=== PATIENT | male | born 1995 | race Caucasian/White ===

== ENCOUNTER 2021-01-25 20:18 | Inpatient (IN) ==
[2021-01-25 21:21] LABS: Basophils # 0.1 K/mcL (0.0-0.2); Basophils % 0.6 %; Eosinophils # 0.2 K/mcL (0.0-0.6); Eosinophils % 2.5 %; Hematocrit 35.3 % (37.5-50.1); Hemoglobin 11.8 g/dL (12.9-16.9); Immature Granulocytes % 0.8 % (0-4); Lymphocytes # 1.5 K/mcL (0.6-4.6); Lymphocytes % 18.7 %; Mean Corpuscular HGB Conc 33.4 g/dL (31.6-35.5); Mean Corpuscular Volume 98.6 fL (83.0-100.0); Mean Platelet Volume 10.1 fL (9.4-12.4); Monocytes # 0.5 K/mcL (0.0-1.3); Monocytes % 6.9 %; Neutrophils # 5.5 K/mcL (1.6-8.9); Platelet Count 328 K/mcL (140-400); Red Blood Count 3.58 M/mcL (4.19-5.50); Red Cell Distribution Width 14.2 % (11.5-14.5); Segmented Neutrophils % 70.5 %; White Blood Count 7.9 K/mcL (4.3-11.1)
[2021-01-25 21:28] LABS: Bilirubin,Urine Large (Negative); Blood,Urine Negative (Negative); Clarity,Urine Clear (Clear); Color,Urine Amber (Yellow); Glucose,Urine (UA) Normal (Normal); Ketones,Urine Negative (Negative); Leukocyte Esterase,Urine Negative (Negative); Nitrite,Urine Negative (Negative); Protein,Urine 30 mg/dL (Neg-Trace); Urobilinogen,Urine Normal (Normal)
[2021-01-25 21:28] LABS: INR 1.2; Prothrombin Time 13.8 Seconds (9.4-12.1)
[2021-01-25 21:35] LABS: Platelet Estimate Normal (Normal)
[2021-01-25 21:36] LABS: Bacteria,Urine Few per hpf (None-Few); Hyaline Casts,Urine Few per lpf (None Seen); Squamous Epithelial Cell,Urine Few per hpf (None-Few); WBC,Urine 0-3 per hpf (0-3)
[2021-01-25 21:45] LABS: Alanine Aminotransferase 66 Units/L (7-52); Albumin 3.4 g/dL (3.5-5.7); Albumin/Globulin Ratio 1.1 (1.1-2.2); Alkaline Phosphatase 1171 Units/L (34-104); Aspartate Amino Transferase 68 Units/L (13-39); BUN/Creatinine Ratio 7 (6-26); Bilirubin,Direct 7.9 mg/dL (0.0-0.2); Bilirubin,Indirect 5.8 mg/dL (0.0-1.0); Bilirubin,Total 13.7 mg/dL (0.3-1.0); Blood Urea Nitrogen 4 mg/dL (6-20); Calcium 8.8 mg/dL (8.6-10.3); Carbon Dioxide 25 mEq/L (23-29); Chloride 95 mEq/L (98-107); Glucose 107 mg/dL (70-105); Lipase 197 Units/L (11-82); Osmolality,Calculated 265 (280-300); Sodium 129 mEq/L (136-145); Total Protein 6.4 g/dL (6.4-8.9); eGFR For African Americans > 60 (> 60); eGFR For Non-African Americans > 60 (> 60)
[2021-01-25 21:45] LABS: Amphetamine Screen,Urine Negative ng/mL (Cutoff=1000); Barbiturate Screen,Urine Negative ng/mL (Cutoff=200); Benzodiazepines Screen,Urine Positive ng/mL (Cutoff=200); Cannabinoid Screen,Urine Positive ng/mL (Cutoff = 50); Cocaine Screen,Urine Negative ng/mL (Cutoff= 300); Opiate Screen,Urine Positive ng/mL (Cutoff=300); Phencyclidine Screen,Urine Negative ng/mL (Cutoff=25)
[2021-01-25] MEDS ORDERED: *HR* Meperidine 50 MG/ML SYRINGE IVP ONE ×2 (22:09→23:27)
[2021-01-25] MEDS ORDERED: Ondansetron 4 MG/2 ML VIAL IVP ONE (22:10)
[2021-01-25] MEDS ORDERED: 0.9 % Sodium Chloride 1,000 ML IVC ONE ×2 (22:10→23:41)
[2021-01-25] MEDS ORDERED: *HR* Promethazine 25 MG/ML VIAL IM ONE (23:13)
[2021-01-26] MEDS ORDERED: Ondansetron 4 MG/2 ML VIAL IVP PRN ×2 (00:31→01:26)
[2021-01-26] MEDS ORDERED: Naloxone 0.4 MG/ML INJ IVP PRN ×2 (00:31→01:26)
[2021-01-26] MEDS ORDERED: *HR* Promethazine 25 MG/ML VIAL IM PRN ×2 (00:47→01:26)
[2021-01-26] MEDS ORDERED: *HR* LORazepam 2 MG/ML VIAL IVP PRN ×5 (00:47→01:26)
[2021-01-26] MEDS ORDERED: diazePAM 10 MG/2 ML SYRINGE IVP PRN (00:47)
[2021-01-26] MEDS ORDERED: 0.9 % Sodium Chloride 1,000 ML IVC SCH ×2 (01:00→01:01)
[2021-01-26] MEDS ORDERED: *HR* OxyCODONE Immed Rel 5 MG TABLET PO PRN (01:26)
[2021-01-26] MEDS ORDERED: NON-FORMULARY MEDICATION 1 EACH EACH (Hydroxyzine Hcl [Hydroxyzine Hcl] 25 MG Tablet) PO PRN (01:26)
[2021-01-26] MEDS ORDERED: hydrOXYzine pamoate 25 MG CAPSULE PO PRN (01:29)
[2021-01-26] MEDS: 0.9 % Sodium Chloride 1,000 ML IVC SCH ×4 (01:55→15:16)
[2021-01-26 03:54] LABS: Basophils % 0.5 %; Eosinophils # 0.2 K/mcL (0.0-0.6); Hematocrit 31.4 % (37.5-50.1); Hemoglobin 10.3 g/dL (12.9-16.9); Immature Granulocytes % 0.5 % (0-4); Lymphocytes # 1.3 K/mcL (0.6-4.6); Lymphocytes % 16.8 %; Mean Corpuscular HGB Conc 32.8 g/dL (31.6-35.5); Mean Corpuscular Hemoglobin 32.5 pg (28.0-33.3); Mean Corpuscular Volume 99.1 fL (83.0-100.0); Monocytes # 0.5 K/mcL (0.0-1.3); Neutrophils # 5.5 K/mcL (1.6-8.9); Platelet Count 278 K/mcL (140-400); Red Blood Count 3.17 M/mcL (4.19-5.50); Red Cell Distribution Width 14.2 % (11.5-14.5); Segmented Neutrophils % 74.2 %; White Blood Count 7.5 K/mcL (4.3-11.1)
[2021-01-26 04:03] LABS: Platelet Estimate Normal (Normal)
[2021-01-26 04:14] LABS: Alanine Aminotransferase 57 Units/L (7-52); Albumin/Globulin Ratio 1.1 (1.1-2.2); Alkaline Phosphatase 1022 Units/L (34-104); Aspartate Amino Transferase 64 Units/L (13-39); BUN/Creatinine Ratio 8 (6-26); Bilirubin,Total 12.6 mg/dL (0.3-1.0); Blood Urea Nitrogen 4 mg/dL (6-20); Carbon Dioxide 22 mEq/L (23-29); Chloride 102 mEq/L (98-107); Globulin 2.8 g/dL (2.4-3.5); Glucose 119 mg/dL (70-105); Magnesium 1.8 mg/dL (1.6-2.6); Osmolality,Calculated 272 (280-300); Phosphorous 2.9 mg/dL (2.7-4.5); Potassium 4.2 mEq/L (3.5-5.1); Sodium 132 mEq/L (136-145); Total Protein 5.8 g/dL (6.4-8.9); eGFR For African Americans > 60 (> 60); eGFR For Non-African Americans > 60 (> 60)
[2021-01-26] MEDS ORDERED: *HR* Enoxaparin 40 MG/0.4 ML SYRINGE SQ SCH ×2 (06:00)
[2021-01-26] MEDS: *HR* LORazepam 2 MG/ML VIAL IVP PRN ×2 (07:50→13:24)
[2021-01-26] MEDS ORDERED: Thiamine (B-1) 100 MG TABLET PO SCH ×2 (09:00)
[2021-01-26] MEDS ORDERED: Folic Acid 1 MG TABLET PO SCH ×2 (09:00)
[2021-01-26 16:11] VITALS: BP 143/104
== END 2021-01-26 16:29 | disposition short-term general hospital (02) | DRG 282 ==
LOC: INPGRE 20:18 → EMEROOGRE 20:18 → INPGRE 01-26 01:22
PROVIDERS: ADMIT Family Medicine; ATTEND Family Medicine